=== PATIENT | male | born 1970 | race Caucasian/White ===

== ENCOUNTER → 2016-05-01 | Outpatient (CLI) | payer OTHER ==
[2016-05-01 09:25] VITALS: BMI 33.9
== END | disposition home or self-care (01) ==
LOC: MNTWWP 08:49
PROVIDERS: ATTEND Family Medicine
DX: D68.59 Other primary thrombophilia (principal)
CPT/HCPCS: 97802

== ENCOUNTER → 2016-10-08 | Outpatient (CLI) | payer MEDICARE ==
[2016-10-08 08:10] LABS: Blood Urea Nitrogen 16 mg/dL (9-20); Non-African American GFR(MDRD) >60 (>60 ml/min/1.73 sqM)
--- NOTE | 2016-10-08 08:58 | CT ---
EXAMINATION TYPE: CT brain wo/w con DATE OF EXAM: 10/08/2016 COMPARISON: NONE HISTORY: Migraines CT DLP: 2125mGycm CONTRAST: CT scan of the head is performed without and with IV Contrast, patient injected with 100 mL of Omnipa que 300. Unenhanced followed by contrast enhanced CT of the brain is submitted for evaluation. The ventricles are midline. There is no evidence for intracranial hemorrhage or extra-axial collection. No mass e ffects are identified. Visualized bony calvarium is intact. Contrast is administered and no enhanci ng lesions are detected. No pathologic enhancement is identified. If symptoms persist consider MRI. IMPRESSION: Normal CT brain.
== END ==
LOC: RADCTMAIN 07:33
PROVIDERS: ATTEND Family Medicine
DX: G43.909 Migraine, unspecified, not intractable, without status migrainosus (principal)
CPT/HCPCS: 82565; 84520; 70470; 36415; Q9967

== ENCOUNTER → 2024-02-12 | Outpatient (CLI) | payer MEDICARE ==
--- NOTE | 2024-02-12 13:22 | US ---
EXAMINATION TYPE: US mass soft tissue chest/back DATE OF EXAM: 02/12/2024 COMPARISON: NONE CLINICAL INDICATION: Male, 53 years old with history of L02.212 CUTANEOUS ABSCESS OF BACK; back surge ry 1 year ago, leaking at incision site TECHNIQUE: several images taken at area of concern with grayscale and color Doppler imaging. FINDINGS: there is a 3.1x1.7x1.5cm hypoechoic area noted at the area of concern IMPRESSION: Hypoechoic nonvascular area in the area of concern possibly representing abscess in the c linical setting of purulent drainage. Alternatively a complex fluid collection such as resolving jatin charli could be considered in the appropriate clinical setting. [facility], , 02/12/2024 1:20 PM
== END | disposition home or self-care (01) ==
LOC: RADUSWWP 12:21
PROVIDERS: ATTEND Family Medicine
DX: L02.212 Cutaneous abscess of back [any part, except buttock and flank] (principal)